=== PATIENT | male | born 1945 | race Caucasian/White ===

== ENCOUNTER 2023-01-03 08:30 | Outpatient (RCR) | payer MEDICARE, BC, SELFPAY ==
--- NOTE | 2022-11-23 12:11 | OT.OPOE ---
OT Outpatient Ortho Eval OT Outpatient Ortho Eval Start: 11/23/22 11:42 Freq: Status: Active Protocol: Document 11/23/22 11:44 LCN (Rec: 11/23/22 12:11 LCN [id number]) E-signed By Ivonne Molina, OTR/L, CLT OT OP Ortho Eval Details Type Type Eval Complexity Low Insurance Information Insurance Information Medicare B Outpatient History/Precautions Current Condition/Medical Diagnosis Referring Provider Dr. Lomas Treatment Diagnosis L wrist pain Date of Onset 10/09/22 Medical Conditions HTN,CA,Arthritis Other Conditions Prostate surgery. H/O gout. L knee pain with golfing last week (responding to brace, Alleve. Has had good success with cortisone in past). 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 Medical/Functional History Medical History Reviewed Yes Prior Level of Function/Mobility Pt and his are very active, moved here from [place] 6 yrs ago. They live in a town home with their 60# dog/ Social History Current Occupation retired [employer] Hobbies golf, gardening,bowling Fitness daily dog walking Oriented Mental Status No Concerns Ortho Subjective Subjective Subjective Shane Sears is an active 77 y/o male who has been having clicking in his L ulnar side of wrist during supination, pronation for the last 6-8 weeks.Starting initially with using wiffle ball golf practice in his basement. PLaying live golf did not aggravate it. No known recent falls or injuries. ( L knee does have a prior fall injury> 20 yrs ago). He has had xray so of L wrist area, found to have distal ulnar degenerative changes, spurring and narrowing at STT area, and MCP head as of 1-3. Can have pain with grasping things in wrist flexion and moving into supination. No pain at rest. Pain Assessment Pain Present Pain Present Pain Reported Location L wrist/TFCC, ECU area Description Pressure,With Movement Intensity 2 Goniometric Comments Goniometric Comments Goniometric Comments AROM of L Wrist-- EX 45 of 55 ( B OA changes) WR FL 80 of 80 , no pain. RD 10 of 15. UD 40 of 40 ( twinge at TFCC at end range/over pressure), also with end ROM of Supination. Pronation with overpressure no pain. Audible, visual/ palpable clicking/ displacement of ECU during repetitive supination, pronation, constant. Does reduce somewhat with TFCC strap in place and after stretching. STRENGTH-- MMT is 5/5 for all L elbow, wrist planes, twinge of pain with WR FL and resisted supination. Electromechanical Technologist is 86# R and 84# L. Pinch is 14# R and 17# L. 3 pt is 20# R and 16 # L. No pain with pulmonary physician or pinch. OT Objective Data Hand Hand Dominance Right Upper Extremity Special Tests Tenosynovitis Wrist Finklestein Test Negative Left Degenerative Arthritis Hand Trapeziometacarpal Joint Grind Test Negative Left Upper Extremity Special Tests Comments Comments No numbness or tingling in fingers. 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 He would benefit from skilled OT to support return to heavy lifting, garden tool and golf tasks with less pain and irritation and how to care for his wrist/hand OA. Occupational Therapy Treatment Plan - OP Goals Goals In 8 weeks, pt will demonstrate:? 1) Decreased pn to <2/10 80% of the time with sustained gripping, carrying groceries, reading books and weeding. 2) I HEP for stretching, gradual strengthening and self mgmt strategies. 3) improved L wrist AROM to 60 WR EX, supination to 90 without TFCC pain. 4)??Pt to be fit with functional bracing (for TFCC, wrist) and use adaptive strategies to protect joint integrity to support less pain with ADL. Target Date 01/22/23 Progress set Treatment Plan Treatment Plan Evaluation,Joint Mobilization, Manual Therapy,Ultrasound, Therapeutic Exercise,Self-Care /Home Management,Education Expected Frequency 1-2x Week Expected Duration 4-6 Weeks Certification Certification I Certify That: Therapy Services Provided, Therapy Plan Established, Therapy Plan Reviewed Recertification Information Recertification Information Initial Certification Date 11/23/22 Recertification Due Date 02/21/23 Provider Signature Shows Agreement With POC & Medical Necessity Physician Comment/Change Comment or Changes Physician NPI Number #
--- NOTE | 2023-01-03 13:45 | OT.OPODN ---
OT Outpatient Ortho Daily Note OT Outpatient Ortho Daily Note Start: 11/23/22 11:42 Freq: Status: Active Protocol: Document 01/03/23 10:01 SAMANTHA (Rec: 01/03/23 10:05 SAMANTHA [id number]) E-signed By Ivonne Molina OTR/L, CLT Type of Note Type of Note Type of Note Daily Note,Discharge Note,Note To MD Visit Number 6 Insurance Information Insurance Information Medicare B Outpatient History/Precautions Current Condition/Medical Diagnosis Referring Provider Dr. Lomas Treatment Diagnosis L wrist pain Date of Onset 10/09/22 Medical Conditions HTN,CA,Arthritis Other Conditions Prostate surgery. H/O gout. L knee pain with golfing last week (responding to brace, Alleve. Has had good success with cortisone in past). 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 Medical/Functional History Medical History Reviewed Yes Prior Level of Function/Mobility Pt and his are very active, moved here from [place] 6 yrs ago. They live in a town home with their 60# dog/ Social History Current Occupation retired [employer] 2000 Hobbies golf, gardening,bowling Fitness daily dog walking Oriented Mental Status No Concerns Ortho Subjective Subjective Subjective Pt has had minimal pain/ECU clicking at L wrist for the past 3 weeks, does well lifting bags of rock, use of garden tools this week. His wrist strengthening exercises help reset the stability and clicking reduces quickly. STT OA feels better with heat pack after gardening. Ready to start weaning off of wrist widget Very pleased w response to therapy. Pain Assessment Pain Present Pain Present Pain Reported Location L wrist/TFCC, ECU area Description Pressure,With Movement Intensity 1 OT OP Daily Ortho Note/Assessment Therapeutic Exercise Therapeutic Exercise Minutes (minutes) 25 Therapeutic Exercise Comments REviewed HEP w resistance band of yellow band loop for WR EX , WR FL UD, 2sec holds, slow lower. Added eccentric loading to radial deviation, well tolerated. Progress to 3 sets of 10 reps as able. Review of current HEP, not doing putty as often as stretches ( 3-4x/day) and wall push ups 2x/day. Coached in weaning off of TFCC brace, start the day 2-3 hrs w brace off, add if tired. Use strengthening to build wrist stability internally. Manage achiness with heat pack. Ultrasound Ultrasound Comments as needed to support reduction of edema for tissue healing and improved tissue mobility Goniometric Comments Goniometric Comments Goniometric Comments 01/02/23-- AROM of L wrist to 65 WR EX, 95 WR FL. UD to 50 of 45 ( hyper mobile with STT stiffness) and RD to 10 of 15 ( STT stiffness). manager operations improved to 82# R and 87# L. Roca pinch is 7# R and 18# L, 3 pt is 19# R and 18# L. No pain with field agronomist/pinch. MMT balanced for WR EX/FL/RD/UD, supination and pronation 5/5, no pain. 12/05/22-- wrist EX improved to 70 and WR Flexion to 80 during SROM. AROM of L WRist-- EX 45 of 55 ( B OA changes) WR FL 80 of 80 , no pain. RD 10 of 15. UD 40 of 40 ( twinge at TFCC at end range/over pressure), also with end ROM of SUpination. Pronation with overpressure no pain. Audible, visual/ palpable clicking/ displacement of ECU during repetitive supination, pronation, constant. Does reduce somewhat with TFCC strap in place and after stretching. STRENGTH-- MMT is 5/5 for all L elbow, wrist planes, twinge of pain with QWR FL and resisted supination. Nurse Practical is 86# R and 84# L. Pinch is 14# R and 17# L. 3 pt is 20# R and 16 # L. No pain with field agronomist or pinch. OT Objective Data Hand Hand Dominance Right Upper Extremity Special Tests Tenosynovitis Wrist Finklestein Test Negative Left Degenerative Arthritis Hand Trapeziometacarpal Joint Grind Test Negative Left Upper Extremity Special Tests Comments Comments No numbness or tingling in fingers. TFCC piano roca is (+), tender during mobilization OT Problems Problems Problems Decreased Range of Motion, Sensory Sensitivity Patient Potential Excellent Assessment Assessment Assessment Pt doing well with HEP, reduced symtoms and knows how to manage if symptoms flare up again. Working on weaning out of TFCC brace. 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 He would benefit from skilled OT to support return to heavy lifting, garden tool and golf tasks with less pain and irritation and how to care for his wrist/hand OA. Occupational Therapy Treatment Plan - OP Potential Rehabilitation Potential Excellent Goals Goals In 8 weeks, pt will demonstrate:? 1) Decreased pn to <2/10 80% of the time with sustained gripping, carrying groceries, reading books and weeding. ( GOAL MET 01/02/23) 2) I HEP for stretching, gradual strengthening and self mgmt strategies.(GOAL MET ) 3) improved L wrist AROM to 60 WR EX, supination to 90 without TFCC pain. (GOAL MET . AROM of L wrist to 65 WR EX, 95 WR FL. UD to 50 of 45 ( hyper mobile with STT stiffness) and RD to 10 of 15 ( STT stiffness). manager operations improved to 82# R and 87# L. Roca pinch is 7# R and 18# L, 3 pt is 19# R and 18# L. No pain with field agronomist/pinch. MMT balanced for WR EX/FL/RD/UD, supination and pronation 5/5, no pain. ) 4)??Pt to be fit with functional bracing (for TFCC, wrist) and use adaptive strategies to protect joint integrity to support less pain with ADL. (GOAL MET 01/02/23, now weaning out of wrist widget) Target Date 01/22/23 Progress set Treatment Plan Treatment Plan Evaluation,Joint Mobilization, Manual Therapy,Ultrasound, Therapeutic Exercise,Self-Care /Home Management,Education Expected Frequency 1-2x Week Expected Duration 4-6 Weeks OT Treatment Minutes Treatment Minutes Timed Treatment Minutes 25 Total Treatment Minutes 25 Occupational Therapy Billing Units Billing Units Therapeutic Exercise 2 Certification Certification I Certify That: Therapy Services Provided, Therapy Plan Established, Therapy Plan Reviewed Recertification Information Recertification Information Initial Certification Date 11/23/22 Recertification Due Date 02/21/23 Provider Signature Shows Agreement With POC & Medical Necessity Physician Comment/Change Comment or Changes Physician NPI Number # Discharge Note Discharge Note Discharge Summary Pt has been seen for 6 visits of skilled OT to address goals above; all goals met and pt agrees he is ready for d/c. Date of First Visit for Therapy 11/23/22 Date of Last Visit for Therapy 01/03/23 Initial Primary Functional Limitations/ Shane Sears is an active 77 Concerns y/o male who has been having clicking in his L ulnar side of wrist during supination, pronation for the last 6-8 weeks.Starting initially with using wiffle ball golf practice in his basement. PLaying live golf did not aggravate it. No known recent falls or injuries. ( L knee does have a prior fall injury> 20 yrs ago). He has had xray so of L wrist area, found to have distal ulnar degenerative changes, spurring and narrowing at STT area, and MCP head as of 1-3. Can have pain with grasping things in wrist flexion and moving into supination. No pain at rest. Initial Pain Level 6 Pain Level at Discharge 1 Interventions Provided During Treatment Joint Mobilization,Manual Therapy,Orthotics/Braces, Therapeutic Exercise,Self Care /Home Management Recommendations/Reason for Discharge Met All Therapy Goals,Progress Cont w/HEP
== END 2023-05-03 23:59 | disposition home or self-care (01) ==
PROVIDERS: PCP Family Medicine; Visit Provider Family Medicine
DX: M25.532 Pain in left wrist (principal); Z51.89 Encounter for other specified aftercare
CPT/HCPCS: 97035; 97110; 97140; 97165; 97535; J1100; X5282